=== PATIENT | female | born 1970 | race Two or more races ===

== ENCOUNTER 2019-05-04 15:15 | Outpatient (CLI) | payer OTHER | END 2019-05-04 23:59 | disposition home or self-care (01) | LOC: CFH 15:15 | PROVIDERS: ATTEND Obstetrics & Gynecology | DX: Z12.31 Encounter for screening mammogram for malignant neoplasm of breast (principal); N92.4 Excessive bleeding in the premenopausal period; N83.201 Unspecified ovarian cyst, right side | CPT/HCPCS: 76830; 77067 ==